=== PATIENT | male | born 1990 | race American Indian/Alaskan Native ===

== ENCOUNTER 2019-03-08 12:15 | Emergency (ER) | payer SELFPAY ==
[2019-03-08 13:27] VITALS: BP 136/82
--- NOTE | 2019-03-08 13:29 | Emergency Department Report ---
ED Rash HPI - HPI Chief Complaint: Skin Rash Stated Complaint: LT FOOT PAIN Time Seen by Provider: 03/08/19 13:25 Duration: 5 Days Location: Lower Extremities Suspected Cause: Unknown Rash Symptoms: No Itching, No Facial Swelling, No Tongue/Oral Swelling, No Breathing Difficulties, No Choking Sensation, No Wheezing/Dyspnea, No Peeling, No Blistering, No Fever, No Lightheaded, No Malaise, No Myalgias Severity: mild Other History: Presents to ER with rash on his feet presumably from his work boots. OTC has not helped. no fever. ambulatory. ED Review of Systems ROS: Stated complaint: LT FOOT PAIN Other details as noted in HPI Comment: All other systems reviewed and negative ED Past Medical Hx - Past Medical History Previous Medical History?: No - Surgical History Past Surgical History?: No Additional Surgical History: LEFT LEG - Family History Family history: no significant - Social History Smoking Status: Never Smoker - Medications Home Medications: Home Medications Medication Instructions Recorded Confirmed Last Taken Type Butenafine HCl [Lotrimin Ultra] 30 gm TP TID #1 cream..g. 03/08/19 Unknown Rx Rash Exam - Exam General: Vital signs noted. No distress. Alert and acting appropriately. - Head Head exam: Present: atraumatic, normocephalic - Eye Eye exam: Present: normal appearance, EOMI. Absent: nystagmus - ENT ENT exam: Present: normal exam, normal orophraynx, mucous membranes moist, normal external ear exam - Neck Neck exam: Present: normal inspection, full ROM. Absent: tenderness, m eningismus - Respiratory Respiratory exam: Present: normal lung sounds bilaterally. Absent: respiratory distress, wheezes, rales, rhonchi, stridor, chest wall tenderness, accessory muscle use, decreased breath sounds, prolonged expiratory - Cardiovascular Cardiovascular Exam: Present: regular rate, normal rhythm, normal heart sounds. Absent: bradycardia, tachycardia, irregular rhythm, systolic murmur, diastolic murmur, rubs, gallop - GI/Abdominal GI/Abdominal exam: Present: soft. Absent: distended, tenderness, guarding, rebound, rigid, pulsatile mass - Rectal Rectal exam: Present: deferred - Extremities Exam Extremities exam: Present: normal inspection, full ROM, other (2+ pulses noted in the bilateral upper extremities. 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 Absent: calf tenderness - Back Exam Back exam: Present: normal inspection, full ROM. Absent: tenderness, CVA tenderness (R), CVA tenderness (L), paraspinal tenderness, vertebral tenderness - Neurological Exam Neurological exam: Present: alert, oriented X3, normal gait, other (Extraocular movements intact. Tongue midline. No facial droop. Facial sensation intact to light touch in the V1, V2, V3 distribution bilaterally. 5 and 5 strength in 4 extremities.. Sensation is intact to light touch in 4 extremities.). Absent: motor sensory deficit - Psychiatric Psychiatric exam: normal affect and mood - Skin Skin exam: Present: warm, dry, intact, normal color. athletes feet bilateral from wearing work boots Other: Positive: Abdomen Normal, Neurologic Normal, Musculoskeletal Normal ED Medical Decision Making - Medical Decision Making rash noted dc home with rx for his athletes feet Vital Signs 03/08/19 13:25 Temperature 98 F Pulse Rate 65 Respiratory 18 Rate Blood Pressure 136/82 O2 Sat by Pulse 100 Oximetry - Differential Diagnosis rash Critical care attestation.: If time is entered above; I have spent that time in minutes in the direct care of this critically ill patient, excluding procedure time. ED Disposition Clinical Impression: Athlete's foot on left Disposition: DC-01 TO HOME OR SELFCARE Is pt being admited?: No Does the pt Need Aspirin: No Condition: Stable Instructions: Antifungals (On the skin), Tinea Pedis (ED) Additional Instructions: follow up with pcp referral below Prescriptions: Butenafine HCl [Lotrimin Ultra] 30 gm TP TID #1 cream..g. Referrals: [facility] [Outside] - 3-5 Days Forms: Work/School Release Form(ED) Time of Disposition: 13:26
== END 2019-03-08 13:45 | disposition home or self-care (01) ==
LOC: ED 12:15
DX: B35.3 Tinea pedis (principal)
CPT/HCPCS: 99281